=== PATIENT | female | born 1990 | race Hispanic/Latino ===

== ENCOUNTER 2017-09-19 10:01 | Emergency (ER) | payer SELFPAY ==
[~2017-09-19] VITALS: Ht 160 cm; Wt 111.1 kg
[2017-09-19] MEDS ORDERED: DIPHENHYDRAMINE HCL 25 MG CAP PO ONE (10:30)
[2017-09-19] MEDS ORDERED: FAMOTIDINE 20 MG TAB PO ONE (10:30)
[2017-09-19] MEDS ORDERED: DEXAMETHASONE SOD PHOS 10 MG/1 ML VIAL INJ ONE (10:30)
[2017-09-19] MEDS ORDERED: PREDNISONE20 MG PO (11:25)
== END 2017-09-19 12:42 | disposition home or self-care (01) ==
LOC: ER 10:01
DX: L50.0 Allergic urticaria (principal)
CPT/HCPCS: 96372; 99283; J1100